=== PATIENT | male | born 1985 | race American Indian/Alaskan Native ===

== ENCOUNTER 2017-12-17 16:00 | Emergency (ER) | payer MEDICAID, OTHER ==
--- NOTE | 2017-12-17 17:15 | ED PDOC ---
Arrival/HPI <Daryl Machado - Last Filed: 12/17/17 17:30> - General Historian: Patient - History of Present Illness Time/Duration: > month Symptom Onset: Gradual Symptom Course: Unchanged Quality: Aching <Elder Price - Last Filed: 12/20/17 07:24> - General Chief Complaint: GI Problem Time Seen by Provider: 12/17/17 16:31 - History of Present Illness Narrative History of Present Illness (Text): 12/17/17 17:20 Pt is a 32 yo M with PMH of GI bleed presents to Emergency department due to pain and bleeding per rectum. Patient states that this has been an on-going for states that there is a lesion that is currently bleeding, with purulent discharge, and is painful when wiping. Patient denies chest pain, shortness of breath, nausea, vomiting abdominal pain, constipation, fever, chills, headache, or dizziness. No PMD. (Elder Price) Past Medical History - Provider Review Nursing Documentation Reviewed: Yes - Psychiatric Hx Substance Use: No <Elder Price - Last Filed: 12/20/17 07:24> Family/Social History - Physician Review Nursing Documentation Reviewed: Yes Family/Social History: No Known Family HX Smoking Status: Never Smoked Hx Alcohol Use: No Hx Substance Use: No <Elder Price - Last Filed: 12/20/17 07:24> Allergies/Home Meds <Daryl Machado - Last Filed: 12/17/17 17:30> <Elder Price - Last Filed: 12/20/17 07:24> Allergies/Adverse Reactions: Allergies No Known Allergies Allergy (Verified 12/17/17 16:34) Review of Systems - Review of Systems Constitutional: Normal Eyes: Normal ENT: Normal Respiratory: Normal Cardiovascular: Normal Gastrointestinal: Hematochezia. absent: Abdominal Pain, Stool Changes, Constipation, Diarrhea, Nausea, Vomiting Genitourinary Male: Normal Musculoskeletal: Normal Skin: Normal Neurological: Normal Endocrine: Normal Hemo/Lymphatic: Normal Psychiatric: Normal <Elder Price - Last Filed: 12/20/17 07:24> Physical Exam Temperature: Afebrile Blood Pressure: Normal Pulse: Regular Respiratory Rate: Normal Appearance: Positive for: Non-Toxic Pain Distress: Mild Mental Status: Positive for: Alert and Oriented X 3 - Systems Exam Head: Present: Atraumatic, Normocephalic Pupils: Present: PERRL Extroacular Muscles: Present: EOMI Conjunctiva: Present: Normal Mouth: Present: Moist Mucous Membranes Neck: Present: Normal Range of Motion Respiratory/Chest: Present: Clear to Auscultation, Good Air Exchange. No: Respiratory Distress, Accessory Muscle Use Cardiovascular: Present: Regular Rate and Rhythm, Normal S1, S2. No: Murmurs Abdomen: No: Tenderness, Distention, Peritoneal Signs Rectal: Present: Hemorrhoids, Normal Rectal Tone, Fissures, Other (perirectal lesion noted at 6 o'clock position with sanguineous and purulent discharge). No : Melena, Nodule/Mass/Lesions Back: Present: Normal Inspection Upper Extremity: Present: Normal Inspection. No: Cyanosis, Edema Lower Extremity: Present: Normal Inspection. No: Edema Neurological: Present: GCS=15, CN II-XII Intact, Speech Normal Skin: Present: Warm, Dry, Normal Color. No: Rashes Psychiatric: Present: Alert, Oriented x 3, Normal Insight, Normal Concentration <Elder Price - Last Filed: 12/20/17 07:24> Vital Signs Temp Pulse Resp BP Pulse Ox 12/17/17 23:47 98.3 F 74 19 113/69 99 12/17/17 19:22 98.2 F 68 18 101/71 99 12/17/17 18:56 79 18 121/70 100 12/17/17 16:01 98.2 F 85 18 126/76 100 Medical Decision Making <Daryl Machado - Last Filed: 12/17/17 17:30> <Elder Price - Last Filed: 12/20/17 07:24> ED Course and Treatment: 12/17/17 17:29 32 year old male presents to the Emergency department for rectal pain, bleeding and discharge. In agreement with resident note, which includes further HPI details. Patient was seen and evaluated with resident, came up with plan and treatment together. (Daryl Machado) 12/17/17 17:26 32 yo M presents to Emergency department with rectal pain, bleeding, and discharge. Plan: - CBC, CMP - Coags - Lipase - Chest X-ray - CT abdomen/pelvis with PO/IV contrast - NPO - Reassess and disposition (Elder Price) - Lab Interpretations Lab Results: 12/17/17 18:07 12/17/17 18:07 Lab Results 12/17/17 18:07: Urine Color Yellow, Urine Appearance Clear, Urine pH 6.0, Ur Specific [place] 1.025, Urine Protein Negative, Urine Glucose (UA) Negative, Urine Ketones Negative, Urine Blood Small H, Urine Nitrate Negative, Urine Bilirubin Negative, Urine Urobilinogen 0.2, Ur Leukocyte Esterase Negative, Urine RBC 1 - 3, Urine WBC 0 - 2, Ur Epithelial Cells 0 - 2, Urine Bacteria Neg 12/17/17 18:07: Sodium 143, Potassium 3.9, Chloride 101, Carbon Dioxide 31, Anion Gap 15, BUN 12, Creatinine 0.9, Est GFR ( Amer) > 60, Est GFR (Non- Af Amer) > 60, Random Glucose 90, Calcium 9.3, Magnesium 2.0, Total Bilirubin 0.9, AST 31, ALT 35, Alkaline Phosphatase 53, Total Protein 8.1, Albumin 4.4, Globulin 3.7, Albumin/Globulin Ratio 1.2, Lipase 110 12/17/17 18:07: PT 11.1, INR 0.97, APTT 35.1 12/17/17 18:07: WBC 7.0, RBC 5.06, Hgb 14.9, Hct 43.4, MCV 85.8, MCH 29.4, MCHC 34.3, RDW 14.0, Plt Count 257, MPV 10.1, Gran % 51.0, Lymph % (Auto) 36.5 H, [place] % (Auto) 9.3 H, Eos % (Auto) 2.9, Baso % (Auto) 0.3, Gran # 3.58, Lymph # ( Auto) 2.6, [place] # (Auto) 0.7 H, Eos # (Auto) 0.2, Baso # (Auto) 0.02 - RAD Interpretation Radiology Orders: 12/17/17 17:15 ABD PELVIS PO & IV CONTRAST [CT] Stat - PA / LAND CLEARER / Resident Statement /DO has reviewed & agrees with the documentation as recorded. MD/DO has examined the patient and agrees with the treatment plan. - Scribe Statement The provider has reviewed the documentation as recorded by the Scribe <Daryl Machado - Last Filed: 12/17/17 17:30> <Elder Price - Last Filed: 12/20/17 07:24> - Scribe Statement Nelson Nelda. All medical record entries made by the Scribe were at my direction and personally dictated by me. I have reviewed the chart and agree that the record accurately reflects my personal performance of the history, physical exam, medical decision making, and the department course for this patient. I have also personally directed, reviewed, and agree with the discharge instructions and disposition. (JeannetteDaryl) Disposition/Present on Arrival <Daryl Machado - Last Filed: 12/17/17 17:30> - Present on Arrival Any Indicators Present on Arrival: No History of DVT/PE: No History of Uncontrolled Diabetes: No Urinary Catheter: No History of Decub. Ulcer: No History Surgical Site Infection Following: None - Disposition Have Diagnosis and Disposition been Completed?: Yes Disposition Time: 07:24 Patient Plan: Discharge <DeeElder - Last Filed: 12/20/17 07:24> - Disposition Diagnosis: Rectal fissure, Kidney lesion Disposition: HOME/ ROUTINE Condition: GOOD Discharge Instructions (ExitCare): Anal Fissure (DC) Additional Instructions: Mr. Scott ---> You have something on your CT scan that may mean you have a mass in your kidney. You need an MRI with and without contrast using the kidney protocol to determine what this is. Please call the [facility] here at the hospital to get this process started. [facility], . You have a rectal fissure and you will follow that up with Dr. Hand. Call his office at [phone] to make the appointment. Take a bath in shallow water with baking soda or epsom salts as often as you can. Use the pericolace to soften your stools. GET THE MRI SOON YOU CAN THROUGH THE CLINIC. [facility]- Dr. Emilio Whitfield Prescriptions: Sennosides/Docusate Sodium [Colace 2-in-1 Tablet] 1 each PO HS #30 tablet Referrals: Lauro Dowell MD [Medical Doctor] - Follow up with primary Forms: [employer] (Slovak), SCHOOL NOTE, WORK NOTE
[2017-12-17] MEDS ORDERED: Iohexol 240 (50 ml) ONE (17:20)
[2017-12-17 18:19] LABS: BASO # 0.02 K/mm3 (0.0-2.0); BASO % 0.3 % (0.0-3.0); EOS # 0.2 (0.0-0.7); EOS % 2.9 % (1.5-5.0); GRAN # 3.58 (1.4-6.5); HEMOGLOBIN 14.9 g/dL (14.0-18.0); LYMPH # 2.6 (1.2-3.4); LYMPH % 36.5 % (22.0-35.0); MEAN CELL VOLUME 85.8 fl (80.0-105.0); MEAN CORPUSCULAR HEMOGLOBIN 29.4 pg (25.0-35.0); MEAN CORPUSCULAR HGB CONC 34.3 g/dl (31.0-37.0); MEAN PLATELET VOLUME 10.1 fl (7.0-11.0); MONO # 0.7 (0.1-0.6); MONO % 9.3 % (1.0-6.0); RBC 5.06 10^6/uL (3.5-6.1); URINE BILIRUBIN NEGATIVE (NEGATIVE); URINE BLOOD SMALL (NEGATIVE); URINE GLUCOSE (UA) NEGATIVE (NEGATIVE); URINE LEUKOCYTE ESTERASE NEGATIVE Leu/uL (NEGATIVE); URINE PROTEIN NEGATIVE mg/dL (<30 mg/dL); URINE UROBILINOGEN 0.2 E.U./dL (<1 E.U./dL)
[2017-12-17 18:28] LABS: ALB/GLOB RATIO 1.2 (1.1-1.8); ALBUMIN 4.4 g/dL (3.0-4.8); ALT/SGPT 35 U/L (7-56); AST/SGOT 31 U/L (17-59); BLOOD UREA NITROGEN 12 mg/dL (7-21); CALCIUM 9.3 mg/dL (8.4-10.5); GFR AFRICAN-AMERICAN > 60; GFR NON-AFRICAN AMERICAN > 60; LIPASE 110 U/L (23-300)
[2017-12-17 18:31] LABS: INR 0.97 (0.93-1.08); PARTIAL THROMBOPLASTIN TIME 35.1 Seconds (25.1-36.5); PROTHROMBIN TIME 11.1 SECONDS (9.4-12.5)
[2017-12-17 18:32] LABS: URINE APPEARANCE CLEAR (CLEAR); URINE COLOR YELLOW (YELLOW)
[2017-12-17 18:47] LABS: URINE BACTERIA NEG (NEG); URINE EPITHELIAL CELLS 0 - 2 /hpf (0-5); URINE WBC 0 - 2 /hpf (0-6)
[2017-12-17] MEDS ORDERED: Iohexol 350 MG/100 ML VIAL ONE (18:54)
[2017-12-17 19:22] VITALS: O2SAT 99
--- NOTE | 2017-12-17 20:07 | ED PDOC ---
Physical Exam Vital Signs Reviewed: Yes Vital Signs Temp Pulse Resp BP Pulse Ox 12/17/17 19:22 98.2 F 68 18 101/71 99 12/17/17 18:56 79 18 121/70 100 12/17/17 16:01 98.2 F 85 18 126/76 100 Temperature: Afebrile Blood Pressure: Normal Pulse: Regular Respiratory Rate: Normal Appearance: Positive for: Well-Appearing, Non-Toxic, Comfortable Pain Distress: None Mental Status: Positive for: Alert and Oriented X 3 - Systems Exam Head: Present: Atraumatic, Normocephalic Pupils: Present: PERRL Extroacular Muscles: Present: EOMI Conjunctiva: Present: Normal Mouth: Present: Moist Mucous Membranes Neck: Present: Normal Range of Motion Respiratory/Chest: Present: Clear to Auscultation, Good Air Exchange. No: Respiratory Distress, Accessory Muscle Use Cardiovascular: Present: Regular Rate and Rhythm, Normal S1, S2. No: Murmurs Abdomen: No: Tenderness, Distention, Peritoneal Signs Rectal: Present: Hemorrhoids, Normal Rectal Tone, Fissures, Other (perirectal lesion noted at 6 o'clock position with sanguineous and purulent discharge). No : Melena, Nodule/Mass/Lesions Back: Present: Normal Inspection Upper Extremity: Present: Normal Inspection. No: Cyanosis, Edema Lower Extremity: Present: Normal Inspection. No: Edema Neurological: Present: GCS=15, CN II-XII Intact, Speech Normal Skin: Present: Warm, Dry, Normal Color. No: Rashes Psychiatric: Present: Alert, Oriented x 3, Normal Insight, Normal Concentration Medical Decision Making ED Course and Treatment: 12/17/17 19:10 Case endorsed to me by Dr. Machado for pending CT of Abdomen/pelvis, reassessment and final disposition. Patient presented to the Emergency department earlier today to rectal pain, bleeding and discharge. Patient is currently resting in bed in no acute distress. Patient currently expresses no new complaints. - Lab Interpretations Lab Results: 12/17/17 18:07 12/17/17 18:07 Lab Results 12/17/17 18:07: Urine Color Yellow, Urine Appearance Clear, Urine pH 6.0, Ur Specific [place] 1.025, Urine Protein Negative, Urine Glucose (UA) Negative, Urine Ketones Negative, Urine Blood Small H, Urine Nitrate Negative, Urine Bilirubin Negative, Urine Urobilinogen 0.2, Ur Leukocyte Esterase Negative, Urine RBC 1 - 3, Urine WBC 0 - 2, Ur Epithelial Cells 0 - 2, Urine Bacteria Neg 12/17/17 18:07: Sodium 143, Potassium 3.9, Chloride 101, Carbon Dioxide 31, Anion Gap 15, BUN 12, Creatinine 0.9, Est GFR ( Amer) > 60, Est GFR (Non- Af Amer) > 60, Random Glucose 90, Calcium 9.3, Magnesium 2.0, Total Bilirubin 0.9, AST 31, ALT 35, Alkaline Phosphatase 53, Total Protein 8.1, Albumin 4.4, Globulin 3.7, Albumin/Globulin Ratio 1.2, Lipase 110 12/17/17 18:07: PT 11.1, INR 0.97, APTT 35.1 12/17/17 18:07: WBC 7.0, RBC 5.06, Hgb 14.9, Hct 43.4, MCV 85.8, MCH 29.4, MCHC 34.3, RDW 14.0, Plt Count 257, MPV 10.1, Gran % 51.0, Lymph % (Auto) 36.5 H, [place] % (Auto) 9.3 H, Eos % (Auto) 2.9, Baso % (Auto) 0.3, Gran # 3.58, Lymph # ( Auto) 2.6, [place] # (Auto) 0.7 H, Eos # (Auto) 0.2, Baso # (Auto) 0.02 - RAD Interpretation Narrative RAD Interpretations (Text): 12/17/2017 20:45 CT Abdomen and Pelvis With Intravenous Contrast FINDINGS: Lung bases: Unremarkable. No mass. No consolidation. ABDOMEN: Liver: Question of fatty infiltration of the liver. Gallbladder and bile ducts: Unremarkable. No calcified stones. No ductal dilation. Pancreas: Pancreas evaluation is limited. No ductal dilation. Spleen: Unremarkable. No splenomegaly. Adrenals: Unremarkable. No mass. Kidneys and ureters: 1.8 cm heterogenous lesion in the left kidney. Possible solid lesion is not excluded. Dedicated imaging is advised. Stomach and bowel: Unremarkable. No obstruction. No mucosal thickening. PELVIS: Appendix: No findings to suggest acute appendicitis. Bladder: Unremarkable. No mass. Reproductive: Unremarkable as visualized. ABDOMEN and PELVIS: Intraperitoneal space: Unremarkable. No free air. No significant fluid collection. Bones/joints: No acute fracture. No dislocation. Soft tissues: Unremarkable. Vasculature: Unremarkable. No abdominal aortic aneurysm. Lymph nodes: Unremarkable. No enlarged lymph nodes. IMPRESSION: 1.8 cm heterogenous lesion in the left kidney. Possible solid lesion is not excluded. Dedicated imaging is advised. Radiology Orders: 12/17/17 17:15 ABD PELVIS PO & IV CONTRAST [CT] Stat - Scribe Statement The provider has reviewed the documentation as recorded by the Scribe Nelson Lutz. All medical record entries made by the Scribe were at my direction and personally dictated by me. I have reviewed the chart and agree that the record accurately reflects my personal performance of the history, physical exam, medical decision making, and the department course for this patient. I have also personally directed, reviewed, and agree with the discharge instructions and disposition. Disposition/Present on Arrival - Present on Arrival Any Indicators Present on Arrival: No History of DVT/PE: No History of Uncontrolled Diabetes: No Urinary Catheter: No History of Decub. Ulcer: No History Surgical Site Infection Following: None - Disposition Have Diagnosis and Disposition been Completed?: Yes Diagnosis: Rectal fissure, Kidney lesion Disposition: HOME/ ROUTINE Disposition Time: 23:15 Patient Plan: Discharge Patient Problems: Current Active Problems Problem Status Onset Kidney lesion Acute Rectal fissure Acute Condition: GOOD Discharge Instructions (ExitCare): Anal Fissure (DC) Additional Instructions: Mr. Scott ---> You have something on your CT scan that may mean you have a mass in your kidney. You need an MRI with and without contrast using the kidney protocol to determine what this is. Please call the [facility] here at the hospital to get this process started. [facility], . You have a rectal fissure and you will follow that up with Dr. Hand. Call his office at [phone] to make the appointment. Take a bath in shallow water with baking soda or epsom salts as often as you can. Use the pericolace to soften your stools. GET THE MRI SOON YOU CAN THROUGH THE CLINIC. [facility]- Dr. Emilio Whitfield Referrals: Lauro Dowell MD [Medical Doctor] - Follow up with primary Forms: [employer] (Cymraes), WORK NOTE, SCHOOL NOTE
--- NOTE | 2017-12-17 23:30 | CP.PCM.CON ---
History of Present Illness - History of Present Illness History of Present Illness: General surgery consult note for Dr. Dowell Consulted for: rectal pain Patient is a 32 male who denies significant PMH but who does not see a primary physician. Patient reports intermittent rectal pain for 4-5 years. Patient states that pain occurs with bowel movements and is sometimes associated with small amount of bright red blood. Patient states that pain will be present for a few days, then resolve for a few weeks or months, but then recur. Patient noted a small area of skin breakdown with mucus production and decided to come to ER. Patient also reports occasional swelling of the tissue around his anus when it is painful, but denies any swelling now. Patient denies any history of constipation or straining with BM's, last BM was this AM, passing gas regularly. Patient denies any hard stools, diarrhea, melena, dysuria , hematuria, abdominal pain, nausea, vomiting, fevers or chills, fecal incontinences or stool seepage on underwear. Patient came to ER in 2014 for similar issues and had a CT scan of the abdomen and pelvis that showed possible inflammation of the rectum/distal sigmoid colon. Patient was discharged with instructions to follow up with GI but did not do so. Patient believes he had either a colonoscopy or EGD at [facility] 8 years ago but doesn't know any details or findings. PMH: none PSH: none ALL: none Social: denies any substances Family history: denies any knowledge of family history of cancer or GI issues Review of Systems - Review of Systems All systems: reviewed and no additional remarkable complaints except (as per HPI ) Past Patient History - Past Medical History & Family History Past Medical History?: No Past Family History: Reviewed and not pertinent - Past Social History Smoking Status: Never Smoked Alcohol: None Drugs: Denies Home Situation {Lives}: With Family - CARDIAC Hx Cardiac Disorders: No - PULMONARY Hx Respiratory Disorders: No - ENDOCRINE/METABOLIC Hx Diabetes Mellitus Type 1: No Hx Diabetes Mellitus Type 2: No - HEMATOLOGICAL/ONCOLOGICAL Hx Anemia: No - PSYCHIATRIC Hx Substance Use: No - SURGICAL HISTORY Hx Surgeries: No Meds Home Medications: Home Medication List Medication Instructions Recorded Confirmed Type Sennosides/Docusate Sodium [Colace 1 each PO HS #30 tablet 12/17/17 Rx 2-in-1 Tablet] Allergies/Adverse Reactions: Allergies Allergy/AdvReac Type Severity Reaction Status Date / Time No Known Allergies Allergy Verified 12/17/17 16:34 Physical Exam - Constitutional Appears: Well, Non-toxic, No Acute Distress - Head Exam Head Exam: ATRAUMATIC, NORMOCEPHALIC - Eye Exam Eye Exam: Normal appearance. absent: Conjunctival injection, Scleral icterus - ENT Exam ENT Exam: Mucous Membranes Moist, Normal Oropharynx - Respiratory Exam Respiratory Exam: NORMAL BREATHING PATTERN. absent: Accessory Muscle Use, Respiratory Distress - Cardiovascular Exam Cardiovascular Exam: RRR - GI/Abdominal Exam GI & Abdominal Exam: Soft. absent: Distended, Guarding, Mass, Tenderness - Rectal Exam Additional comments: 6 o'clock position with small area of skin breakdown approximately 5mm from the anus, small amount of mucus secretion from this area, no fluctuance, erythema, or purulent drainage. Non-tender, non-erythematous, soft external hemorrhoids. Sphincter tone intact, no masses, areas of fluctuance, or tenderness in the rectal vault Small amount of pink tinged stool positive for blood on hemoccult test - Exam Exam: absent: Scrotal Swelling - Extremities Exam Extremities exam: Positive for: pedal pulses present. Negative for: calf tenderness, pedal edema, tenderness - Back Exam Back exam: absent: CVA tenderness (L), CVA tenderness (R) - Neurological Exam Neurological exam: Alert, Normal Gait, Oriented x3 - Psychiatric Exam Psychiatric exam: Normal Affect, Normal Mood - Skin Skin Exam: Dry, Intact, Normal Color, Warm Results - Vital Signs Recent Vital Signs: Last Vital Signs Temp 98.2 F 12/17/17 19:22 Pulse 68 12/17/17 19:22 Resp 18 12/17/17 19:22 BP 101/71 12/17/17 19:22 Pulse Ox 99 12/17/17 19:22 - Labs Result Diagrams: 12/17/17 18:07 12/17/17 18:07 Labs: Laboratory Results - last 24 hr 12/17/17 12/17/17 12/17/17 18:07 18:07 18:07 WBC 7.0 RBC 5.06 Hgb 14.9 Hct 43.4 MCV 85.8 MCH 29.4 MCHC 34.3 RDW 14.0 Plt Count 257 MPV 10.1 Gran % 51.0 Lymph % (Auto) 36.5 H [place] % (Auto) 9.3 H Eos % (Auto) 2.9 Baso % (Auto) 0.3 Gran # 3.58 Lymph # (Auto) 2.6 [place] # (Auto) 0.7 H Eos # (Auto) 0.2 Baso # (Auto) 0.02 PT 11.1 INR 0.97 APTT 35.1 Sodium 143 Potassium 3.9 Chloride 101 Carbon Dioxide 31 Anion Gap 15 BUN 12 Creatinine 0.9 Est GFR ( Amer) > 60 Est GFR (Non-Af Amer) > 60 Random Glucose 90 Calcium 9.3 Magnesium 2.0 Total Bilirubin 0.9 AST 31 ALT 35 Alkaline Phosphatase 53 Total Protein 8.1 Albumin 4.4 Globulin 3.7 Albumin/Globulin Ratio 1.2 Lipase 110 Urine Color Urine Appearance Urine pH Ur Specific [place] Urine Protein Urine Glucose (UA) Urine Ketones Urine Blood Urine Nitrate Urine Bilirubin Urine Urobilinogen Ur Leukocyte Esterase Urine RBC Urine WBC Ur Epithelial Cells Urine Bacteria 12/17/17 18:07 WBC RBC Hgb Hct MCV MCH MCHC RDW Plt Count MPV Gran % Lymph % (Auto) [place] % (Auto) Eos % (Auto) Baso % (Auto) Gran # Lymph # (Auto) [place] # (Auto) Eos # (Auto) Baso # (Auto) PT INR APTT Sodium Potassium Chloride Carbon Dioxide Anion Gap BUN Creatinine Est GFR ( Amer) Est GFR (Non-Af Amer) Random Glucose Calcium Magnesium Total Bilirubin AST ALT Alkaline Phosphatase Total Protein Albumin Globulin Albumin/Globulin Ratio Lipase Urine Color Yellow Urine Appearance Clear Urine pH 6.0 Ur Specific [place] 1.025 Urine Protein Negative Urine Glucose (UA) Negative Urine Ketones Negative Urine Blood Small H Urine Nitrate Negative Urine Bilirubin Negative Urine Urobilinogen 0.2 Ur Leukocyte Esterase Negative Urine RBC 1 - 3 Urine WBC 0 - 2 Ur Epithelial Cells 0 - 2 Urine Bacteria Neg - Imaging and Cardiology CT scan - abdomen Status: Image reviewed by me, Report reviewed by me Assessment & Plan - Assessment and Plan (Free Text) Assessment: 32M with chronic rectal pain and possible fissure vs fistula and external hemorrhoids Plan: No indication for surgical intervention and this time--patient's CT of the abdomen and pelvis are negative for any acute colitis or intra-abdominal pathology or abscess. patient is afebrile, hemodynamically stable, without anemia or leukocytosis Patient should use stool softeners to prevent constipation and straining, Sitz baths TID and after every bowel movement. Patient should follow up with Dr. Dowell in his office in 1-2 weeks Patient should follow up with a primary physician Patient should follow up with a GI specialist for colonoscopy to evaluate for IBD and possible fissure Discussed with Dr. Dowell, who agrees with above Natty Andersen, PGY2
[2017-12-17 23:54] VITALS: BP 113/69; PULSE 74; RESP 19; TEMP 98.3
--- NOTE | 2017-12-18 08:25 | CT ---
PROCEDURE: CT Abdomen and Pelvis with contrast HISTORY: rectal pain COMPARISON: 05/10/2015 TECHNIQUE: Contrast dose: 100 mL Omnipaque 350 Radiation dose: Total exam DLP = 513.52 mGy-cm. This CT exam was performed using one or more of the following dose reduction techniques: Automated exposure control, adjustment of the mA and/or kV according to patient size, and/or use of iterative reconstruction technique. FINDINGS: LOWER THORAX: Unremarkable. LIVER: Unremarkable. No gross lesion or ductal dilatation. GALLBLADDER AND BILE DUCTS: Unremarkable. PANCREAS: Unremarkable. No gross lesion or ductal dilatation. SPLEEN: Unremarkable. ADRENALS: Unremarkable. No mass. KIDNEYS AND URETERS: No renal mass identified. There is a small focal cortical scar in the mid to upper left kidney, nonspecific. This is unchanged from prior examination. No calculus or hydronephrosis. VASCULATURE: Unremarkable. No aortic aneurysm. BOWEL: Unremarkable. No obstruction. No gross mural thickening. APPENDIX: Normal appendix. PERITONEUM: Unremarkable. No free fluid. No free air. LYMPH NODES: Unremarkable. No enlarged lymph nodes. BLADDER: Unremarkable. REPRODUCTIVE: Normal prostate BONES: No acute fracture. OTHER FINDINGS: None. IMPRESSION: No acute abnormality. Renal mass described in the preliminary report of this examination is felt to be artifact. However, further evaluation with renal ultrasound examination is advised on a nonemergent basis to further assess this possibility. Small focal left renal cortical scar common nonspecific. Otherwise unremarkable examination. Preliminary interpretation of this examination was reported by [employer] at 8:45 p.m. on 12/17/2017. There is concurrence of this report with the preliminary interpretation.
== END 2017-12-17 23:47 | disposition home or self-care (01) ==
LOC: ED 16:00
DX: K60.2 Anal fissure, unspecified (principal); N28.89 Other specified disorders of kidney and ureter
CPT/HCPCS: 74177; 80053; 81001; 83690; 83735; 85025; 85610; 85730; 99284; Q9966; Q9967